=== PATIENT | male | born 1960 | race Caucasian/White ===

== ENCOUNTER 2016-04-10 00:34 | Emergency (ER) | payer MEDICAID ==
[~2016-04-10] VITALS: Ht 167.6 cm; Wt 81.5 kg
[2016-04-10 01:19] VITALS: Ht 167.6 cm; Wt 81.5 kg
[2016-04-10] MEDS ORDERED: IBUPROFEN 600 MG TAB PO ONE (02:00)
--- NOTE | 2016-04-10 02:01 | ERD ---
ER Documentation Chief Complaint Date/Time DATE: 04/10/16 TIME: 01:59 Chief Complaint sp ground level fall. left rib pain HPI 56-year-old male presents to emergency department for complaints of left rib pain after falling today. Patient fell, landed on the left chest area, describes the pain as throbbing pain, 8/10 scale, is worse upon taking a deep breath and touching the area. Patient denies any shortness of breath. Patient denies any dizziness. Patient denies any loss of consciousness. Patient denies any other joint pain. Patient took some Advil for pain with mild relief. ROS All systems reviewed and are negative except as per history of present illness. Medications Home Meds Reported Medications [None] No Conflict Check 03/12/09 Allergies Allergies: Coded Allergies: No Known Drug Allergy (Verified Allergy, Mild, 02/28/11) PMhx/Soc Medical and Surgical Hx: pt denies Medical Hx, pt denies Surgical Hx History of Surgery: No Anesthesia Reaction: No Hx Neurological Disorder: No Hx Respiratory Disorders: No Hx Cardiac Disorders: No Hx Psychiatric Problems: No Hx Miscellaneous Medical Probl: No Hx Alcohol Use: No Hx Substance Use: No Hx Tobacco Use: No FmHx Family History: No coronary disease, No diabetes, No other Physical Exam Vitals Vital Signs Date Time Temp Pulse Resp B/P Pulse Ox O2 Delivery O2 Flow Rate FiO2 04/10/16 01:19 98.2 83 20 150/81 100 Physical Exam GENERAL: The patient is well developed and appropriate for usual state of health, in no apparent distress. CHEST: Clear to auscultation bilaterally. There are no rales, wheezes or rhonchi. Tenderness on palpation on the left inner anterior fifth sixth and seventh rib. HEART: Regular rate and rhythm. No murmurs, clicks, rubs or gallops. No S3 or S4. ABDOMEN: Soft, nontender and nondistended. Good bowel sounds. No rebound or guarding. No gross peritonitis. No gross organomegaly or masses. No James sign or McBurney point tenderness. BACK: No midline or flank tenderness. EXTREMITIES: Equal pulses bilaterally. There is no peripheral clubbing, cyanosis or edema. No focal swelling or erythema. Full range of motion. Grossly neurovascularly intact. NEURO: Alert and oriented. Cranial nerves 2-12 intact. Motor strength in all 4 extremities with 5/5 strength. Sensation grossly intact. Normal speech and gait. SKIN: There is no apparent rash or petechia. The skin is warm and dry. HEMATOLOGIC AND LYMPHATIC: There is no evidence of excessive bruising or lymphedema. No gross cervical, axillary, or inguinal lymphadenopathy. Results 24 hrs Current Medications Medications (Trade) Dose Ordered Sig/Katelyn Route PRN Reason Start Time Stop Time Status Last Admin Dose Admin Ibuprofen (Motrin) 600 mg ONCE ONCE PO 04/10/16 02:00 04/10/16 02:01 DC 04/10/16 02:16 Patient was given medication for pain here in emergency department, after treatment, patient verbalized feeling much better. Patient's pain is improved. PROCEDURE: XR Chest. CLINICAL INDICATION: Left chest pain after fall TECHNIQUE: Frontal and Lateral views of the chest were obtained. COMPARISON: 04/10/2012 FINDINGS: The cardiomediastinal silhouette appears within normal limits. The lungs are clear and no pleural effusion or significant edema is seen. No appreciable atherosclerotic change. No pneumothorax is seen. There is mild degenerative change of the spine. IMPRESSION: No evidence for active cardiopulmonary disease. RPTAT: [facility] Physician Rimma Date Time Electronically viewed and signed by Karin Harris Physician on 04/10/2016 02 :21 LE/ CC: ADRIA HAHN NP PROCEDURE: XR Ribs. CLINICAL INDICATION: Chest pain. TECHNIQUE: 3 frontal and oblique views of the left ribs were obtained. The images were reviewed on a PACS workstation. COMPARISON: None. FINDINGS: There is no evidence for a rib fracture. The underlying lung parenchyma is intact without evidence for pneumothorax. IMPRESSION: No acute rib fracture identified. .Chon Maya MD, Date Time Electronically viewed and signed by .Chon Maya MD, on 04/10/2016 02:29 .T/ CC: ADRIA HAHN NP Procedures/MDM Medical Decision Making: Patient's pain is most likely consistent with a rib contusion. Radiology exams of the affected area does not show any fracture or dislocation. No pneumothorax noted. No symptoms of any cardiopulmonary emergencies at this time. Disposition: Home. Patient is given prescription for ibuprofen for pain , now for severe pain. Patient was advised to apply ice on affected area. Patient was advised that if symptoms are worse, shortness of breath uncontrolled pain, worsening symptoms, to return to emergency department immediately. Otherwise, patient is advised to follow up with the primary care doctor in 5-7 days for reevaluation of symptoms. Departure Diagnosis: Primary Impression: Rib pain Condition: Stable Patient Instructions: Rib Contusion Additional Instructions: Patient is given prescription for ibuprofen for pain , now for severe pain. Patient was advised to apply ice on affected area. Patient was advised that if symptoms are worse, shortness of breath uncontrolled pain, worsening symptoms , to return to emergency department immediately. Otherwise, patient is advised to follow up with the primary care doctor in 5-7 days for reevaluation of symptoms. ADRIA HAHN NP Apr 10, 2016 02:01
--- NOTE | 2016-04-10 02:21 | RADRPT ---
PROCEDURE: XR Chest. CLINICAL INDICATION: Left chest pain after fall TECHNIQUE: Frontal and Lateral views of the chest were obtained. COMPARISON: 04/10/2012 FINDINGS: The cardiomediastinal silhouette appears within normal limits. The lungs are clear and no pleural e ffusion or significant edema is seen. No appreciable atherosclerotic change. No pneumothorax is see n. There is mild degenerative change of the spine. IMPRESSION: No evidence for active cardiopulmonary disease. RPTAT: [facility] Physician Rimma Date Time Electronically viewed and signed by Karin Harris Physician on 04/10/2016 02:21 LE/
--- NOTE | 2016-04-10 02:29 | RADRPT ---
PROCEDURE: XR Ribs. CLINICAL INDICATION: Chest pain. TECHNIQUE: 3 frontal and oblique views of the left ribs were obtained. The images were reviewed o n a PACS workstation. COMPARISON: None. FINDINGS: There is no evidence for a rib fracture. The underlying lung parenchyma is intact without evidence f or pneumothorax. IMPRESSION: No acute rib fracture identified. .Chon Maya MD, MD Date Time Electronically viewed and signed by .Chon Maya MD, MD on 04/10/2016 02:29 .T/
[2016-04-10] MEDS ORDERED: TRAM50TA2 PO (02:34)
[2016-04-10] MEDS ORDERED: IBUP-1542 PO (02:34)
== END 2016-04-10 03:21 | disposition home or self-care (01) ==
LOC: FTE 00:34
DX: S29.9XXA Unspecified injury of thorax, initial encounter (principal); W18.39XA Other fall on same level, initial encounter; Y92.9 Unspecified place or not applicable
CPT/HCPCS: 71020; 71100; Z7502; Z7610

== ENCOUNTER 2018-09-22 20:57 | Emergency (ER) | payer SELFPAY ==
[~2018-09-22] VITALS: Ht 165.1 cm; Wt 88.5 kg
[~2018-09-22 20:57] MED LIST: CYCL10TA7 PO; HYDR-4011 PO; IBUP-1542 PO; NALO4SPR NS; NAPR-985 PO; TRAM50TA2 PO
[2018-09-22 21:01] VITALS: RESP 18; Ht 165.1 cm; Wt 88.5 kg
[2018-09-22] MEDS ORDERED: NAPROXEN 500 MG TAB PO ONE (22:30)
[2018-09-22 23:30] VITALS: BP 160/92; PULSE 60
--- NOTE | 2018-09-25 22:04 | ERD ---
ER Documentation Chief Complaint Chief Complaint slipped and fell yesterday, c/o pain/bruising left hip area HPI This is a 58yo M who presents to the ED with complaint of left sided back pain x 4 days. Pt states to have fallen 4 days ago after slipping on a banana peel and landing on his sons skateboard. He denies head trauma, LOC, vomiting, or changes in behavior s/p incident. He notes he has been going about his normal activities since the incident, but pain has increased over the past few days. He rates his pain as 7/10 for which he has not taken medication to alleviate his symptoms prior to arrival. He denies saddle anesthesia, bowel/bladder incontinence, loss motor function, no fevers. No hx of IVDA, CA, or DM. ROS All systems reviewed and are negative except as per history of present illness. Medications Home Meds Active Scripts Naloxone HCl nasal spray (Narcan 4 mg/0.1 mL nasal) 4 Mg [place], 4 MG NS .Q2-3MIN for OPIOID OVERDOSE, #2 SPRAY 0 Refills [place] 0.1 mL into one nostril. Repeat with second device into other nostril after 2-3 minutes if no or minimal response Prov:FRANCISCO GARCIA PA-C 09/22/18 Hydrocodone/Acetaminophen (Adams 5-325 Tablet) 1 Each Tablet, 1 TAB PO Q6H PRN for PAIN, #7 TAB Prov:FRANCISCO GARCIA PA-C 09/22/18 Cyclobenzaprine Hcl* (Cyclobenzaprine Hcl*) 10 Mg Tablet, 10 MG PO TID, #15 TAB Prov:FRANCISCO GARCIA PA-C 09/22/18 Naproxen* (Naprosyn*) 500 Mg Tablet, 500 MG PO BID PRN for PAIN AND/OR INFLAMMATION, #30 TAB Prov:FRANCISCO GARCIA PA-C 09/22/18 Tramadol HCl (Tramadol HCl) 50 Mg Tablet, 50 MG PO Q6 PRN for SEVERE PAIN LEVEL 7-10, #20 TAB Prov:ADRIA HAHN NP 04/10/16 Ibuprofen* (Motrin*) 600 Mg Tab, 600 MG PO Q6H PRN for PAIN AND OR ELEVATED TEMP, #30 TAB Prov:ADRIA HAHN NP 04/10/16 Reported Medications [None] No Conflict Check 03/12/09 Allergies Allergies: Coded Allergies: No Known Drug Allergy (Verified Allergy, Mild, 02/28/11) PMhx/Soc Medical and Surgical Hx: pt denies Medical Hx, pt denies Surgical Hx History of Surgery: No Anesthesia Reaction: No Hx Neurological Disorder: No Hx Respiratory Disorders: No Hx Cardiac Disorders: No Hx Psychiatric Problems: No Hx Miscellaneous Medical Probl: No Hx Alcohol Use: No Hx Substance Use: No Hx Tobacco Use: No Smoking Status: Never smoker FmHx Family History: No diabetes, No coronary disease, No other Physical Exam Vitals Vital Signs Date Temp Pulse Resp B/P (MAP) Pulse Ox O2 O2 Flow FiO2 Time Delivery Rate 09/22/18 60 160/92 97 Room Air 23:30 (114) 09/22/18 98.8 76 18 165/91 98 21:01 (115) Physical Exam General: alert, no acute distress and cooperative, A&Ox3 Head/Eyes: normocephalic, atraumatic, PERRL, conjunctiva normal Neck: supple, nontender, full ROM, no midline vertebral tenderness, no LAD Lungs: no respiratory distress, lungs CTA bilaterally, no wheezes, no rhonchi, no retractions. Positive left posterior chest wall tenderness to palpation. No crepitus, no gross visible deformity. No ecchymosis, or warmth. No visible abrasions. Cardio: RRR, no murmurs, gallops, or rubs. no pedal edema Abdomen: soft, nontender, no rebound, no guarding. No visible ecchymosis or abrasions. Extremities: Inspection normal, Normal range of motion to all major joints.Visible ecchymosis to the left hip but full painless ROM. Able to bear weight. Back: Inspection normal, no midline or CVA tenderness, bilateral paraspinous muscle spasm and tenderness, Full ROM, bilateral negative straight leg raise, normal dorsiflexion BLE, NVI distallySkin: normal to inspection, color normal, warm, dry, intact Neuro: alert, normal speech, no motor deficits, no sensory deficits, slow steady gait Psych: calm, no SI/HI, no hallucinations Results 24 hrs Current Medications Medications Dose Sig/Katelyn Start Time Status Last (Trade) Ordered Route PRN Stop Time Admin Dose Reason Admin Naproxen 500 mg ONCE ONCE 09/22/18 DC 09/22/18 (Naprosyn) PO 22:30 22:47 09/22/18 22:31 Procedures/MDM PROCEDURE: XR ribs . FINDINGS: The bone mineralization is normal. There is no acute fracture or subluxation. The soft tissues are unremarkable. IMPRESSION: 1. No gross evidence of acute fractures of the visualized left ribs. The left lung is clear. No gross pneumothorax. MDM: This is an otherwise healthy 58yo M who presents to the ED for left sided rib pain x 4 days s/p mechanical trip and fall. Physical exam revealed pain to palpation of the left posterior rib cage, no crepitus, no gross visible deformity, no ecchymosis and muscle spasms to the paraspinous muscles. XR ribs/chest revealed no acute fracture and no evidence of pneumothorax. I have counseled pt regarding findings and have advised for close follow-up with PCP within the next 1-2 days. Pt will be discharged home at this time with prescription for Naproxen, Flexeril and short course of Adams for acute pain. CURES negative. At this time I do not believe pt to be at risk for overdose, however, I have counseled that opioids can be addictive and have recommended use of the medication sparingly for the shortest period necessary. Narcan also prescribed. Strict ED return precautions discussed, pt to return immediately at the onset of any new or worsening symptoms. Pt expressed verbal understanding and agreement to treatment plan. All questions addressed and answered. Departure Diagnosis: Primary Impression: Rib contusion Encounter type: initial encounter Laterality: left Qualified Codes: S20.212A - Contusion of left front wall of thorax, initial encounter Condition: Stable Patient Instructions: R.I.C.E., Rib Contusion [facility] Usted se mcneal hecho un examen mdico de control que le indica que no est en guille condicin que requiera tratamiento urgente en el Departamento de Emergencia. Un estudio ms profundo y el tratamiento de cagle condicin pueden esperar sin ningn riesgo hasta que usted sea atendida/o en el consultorio de cagle mdico o guille clnica. Es responsabilidad suya arreglar guille maurilio para el seguimiento del alexis. MANEJO DE CONDICIONES NO URGENTES EN EL FUTURO 1) Si usted tiene un mdico de atencin primaria: Usted debera llamar a cagle mdico de atencin primaria antes de venir al departamento de emergencia. Despus de las horas de consultorio, cagle doctor o cagle asociado/a est disponible por telfono. El mdico o enfermero de esequiel en el servicio telefnico puede asesorarle por oziel medio para atender el problema, o alexis contrario se puede programar guille maurilio. 2) Si usted no tiene un mdico de atencin primaria: Llame al mdico o clnica de referencia que aparece abajo emma las horas de consultorio para hacer guille maurilio para que le vean. CLINICAS: [facility] [id number] [facility] [phone] [facility] [phone] [address] [facility]. [place] [id number] [phone] [facility]. [place] [id number] [phone] [facility]. [phone] [address] Additional Instructions: Please return to the ED immediately if symptoms persist or worsen despite treatment FRANCISCO GARCIA PA-C Sep 25, 2018 21:59
== END 2018-09-22 23:32 | disposition home or self-care (01) ==
LOC: FTE 20:57
DX: S70.02XA Contusion of left hip, initial encounter (principal); S20.212A Contusion of left front wall of thorax, initial encounter; W01.0XXA Fall on same level from slipping, tripping and stumbling without subsequent striking against object, initial encounter; Y92.9 Unspecified place or not applicable
CPT/HCPCS: 71100